=== PATIENT | male | born 1975 | race Two or more races ===

== ENCOUNTER 2020-09-02 22:00 | Inpatient (IN) ==
[2020-09-03 01:48] LABS: ABS Eosinophils 0.1 10^3/ul (0-0.6); ABS Lymphocytes 1.7 10^3/ul (1.0-4.8); ABS Monocytes 0.6 10^3/ul (0-0.8); Eosinophil % 1.4 %; Hematocrit 21 % (42-52); Hemoglobin 7.1 g/dL (14.0-18.0); Lymphocyte % 22.7 %; Mean Corpuscular HGB Conc 34 g/dL (31-36); Mean Corpuscular Hemoglobin 28 pg (27-31); Mean Corpuscular Volume 82 fL (80-94); Mean Platelet Volume 8.9 fL (7.4-10.4); Platelet Count 273 10^3/uL (150-450); Red Blood Count 2.55 10^6 /uL (4.18-5.48); Red Cell Distribution Width 16 % (10-15); White Blood Count 7.4 10^3/uL (3.5-10.8)
[2020-09-03 02:05] LABS: ALT 6 U/L (7-52); AST 9 U/L (13-39); Albumin 3.7 g/dL (3.2-5.2); Albumin/Globulin Ratio 1.5 (1-3); Alkaline Phosphatase 91 U/L (34-104); Anion Gap 8 mmol/L (2-11); Blood Urea Nitrogen 43 mg/dL (6-24); CO2 Carbon Dioxide 23 mmol/L (22-32); Calcium 8.8 mg/dL (8.6-10.3); Chloride 107 mmol/L (101-111); EGFR African American 18.5 (>60); EGFR Non-African American 15.3 (>60); Globulin 2.5 g/dL (2-4); Glucose 89 mg/dL (70-100); Potassium 3.9 mmol/L (3.5-5.0); Sodium 138 mmol/L (135-145); Total Protein 6.2 g/dL (6.4-8.9)
[2020-09-03 02:20] LABS: Troponin I 0.07 ng/mL (<0.03)
[2020-09-03] MEDS ORDERED: Lisinopril/HCTZ 20/25 TAB (NF) PO STA (02:44)
[2020-09-03] MEDS ORDERED: Nitro 2% OINT (Nitroglycerin) 1 INCH/PAK TOPICAL ONE (02:52)
[2020-09-03] MEDS ORDERED: Lactated Ringers 1000 ml BAG 1,000 ML IV SCH (03:00)
[2020-09-03 03:22] LABS: ABS Eosinophils 0.1 10^3/ul (0-0.6); ABS Lymphocytes 1.3 10^3/ul (1.0-4.8); ABS Monocytes 0.5 10^3/ul (0-0.8); ABS Neutrophils 5.5 10^3/ul (1.5-7.7); Eosinophil % 1.1 %; Hematocrit 19 % (42-52); Hemoglobin 6.6 g/dL (14.0-18.0); Lymphocyte % 17.2 %; Mean Corpuscular HGB Conc 34 g/dL (31-36); Mean Corpuscular Hemoglobin 28 pg (27-31); Mean Corpuscular Volume 82 fL (80-94); Mean Platelet Volume 8.6 fL (7.4-10.4); Platelet Count 271 10^3/uL (150-450); Red Blood Count 2.38 10^6 /uL (4.18-5.48); Red Cell Distribution Width 16 % (10-15); White Blood Count 7.4 10^3/uL (3.5-10.8)
[2020-09-03 03:38] LABS: Activated Partial Thrombo Time 36.1 seconds (26.0-38.0); INR 1.01 (0.82-1.09)
[2020-09-03 03:45] LABS: Influenza A Molecular Negative (Negative); Influenza B Molecular Negative (Negative)
[2020-09-03] MEDS ORDERED: Lidocaine PATCH 5% PATCH TRANSDERM ONE (05:12)
[2020-09-03 05:49] LABS: Troponin I 0.07 ng/mL (<0.03)
[2020-09-03] MEDS: niCARdipine 0.1MG/ML IVPREMIX 20 MG/200 ML BAG IV SCH ×3 (06:14→10:02)
[2020-09-03 06:49] LABS: Urine Appearance Cloudy; Urine Bilirubin Negative (Negative); Urine Blood Negative (Negative); Urine Color Yellow; Urine Glucose Negative (Negative); Urine Ketones Negative (Negative); Urine Nitrite Negative (Negative); Urine Protein 2+(100 mg/dL) (Negative); Urine Specific Gravity 1.006 (1.010-1.030); Urine Urobilinogen Negative (Negative)
[2020-09-03 07:11] LABS: Urine Benzodiazepine Screen None Detected (None Detect); Urine Cannabinoids Screen None Detected (None Detect); Urine Opiates Screen None Detected (None Detect)
[2020-09-03 07:12] LABS: Urine Bacteria Absent (Absent); Urine Red Blood Cell Absent (Absent); Urine Squamous Epithelial Cell Present (Absent); Urine White Blood Cell Trace(0-5/hpf) (Absent)
[2020-09-03 07:39] LABS: Corrected Retic Count 1.2 % (0.5-1.5); Hematocrit for Retic CNT 20 % (42-52); Immature Retic Fraction 0.59; RBC Retic Count 2.41 10^6/uL (4.18-5.48)
[2020-09-03 07:48] LABS: LDH 153 U/L (140-271)
[2020-09-03 08:09] LABS: Polychromasia 1+
[2020-09-03 08:44] LABS: Magnesium 2.1 mg/dL (1.9-2.7); Phosphorus 4.6 mg/dL (2.5-5.0)
[2020-09-03 09:05] LABS: % Iron Saturation 7 % (15-55); Iron 30 ug/dL (50-212); Total Iron Binding Capacity 402 mcg/dL (250-450); Transferrin 287 mg/dL (203-362); Unsaturated Iron Binding < 387 ug/dL
[2020-09-03 09:19] LABS: Ferritin 24.5 ng/mL (24-336)
[2020-09-03 11:12] LABS: Cholesterol 173 mg/dL; HDL Cholesterol 42.3 mg/dL
[2020-09-03 11:49] LABS: Troponin I 0.07 ng/mL (<0.03)
[2020-09-03 14:01] LABS: LDL Cholesterol 112 mg/dL; Triglycerides 95 mg/dL
[2020-09-03] MEDS ORDERED: Lidocaine Patch REMOVE PATCH PATCH OFF ONE (17:00)
[2020-09-03 17:32] LABS: Hematocrit 20 % (42-52); Hemoglobin 6.7 g/dL (14.0-18.0)
[2020-09-04 05:34] LABS: ABS Eosinophils 0.1 10^3/ul (0-0.6); ABS Lymphocytes 1.1 10^3/ul (1.0-4.8); ABS Monocytes 0.4 10^3/ul (0-0.8); ABS Neutrophils 4.7 10^3/ul (1.5-7.7); Eosinophil % 1.4 %; Hematocrit 21 % (42-52); Hemoglobin 7.1 g/dL (14.0-18.0); Lymphocyte % 17.1 %; Mean Corpuscular HGB Conc 34 g/dL (31-36); Mean Corpuscular Hemoglobin 27 pg (27-31); Mean Corpuscular Volume 81 fL (80-94); Mean Platelet Volume 8.8 fL (7.4-10.4); Nucleated Red Blood Cells % 0.1; Platelet Count 246 10^3/uL (150-450); Red Blood Count 2.59 10^6 /uL (4.18-5.48); Red Cell Distribution Width 17 % (10-15); White Blood Count 6.4 10^3/uL (3.5-10.8)
[2020-09-04 05:50] LABS: Albumin 3.6 g/dL (3.2-5.2); Albumin/Globulin Ratio 1.4 (1-3); BUN/Creatinine Ratio 10.2 (8-20); EGFR African American 18.9 (>60); EGFR Non-African American 15.6 (>60); Globulin 2.6 g/dL (2-4); Magnesium 2.1 mg/dL (1.9-2.7); Phosphorus 4.4 mg/dL (2.5-5.0); Potassium 4.1 mmol/L (3.5-5.0); Total Bilirubin 0.3 mg/dL (0.2-1.0); Total Protein 6.2 g/dL (6.4-8.9)
[2020-09-04] MEDS ORDERED: Iron Sucrose 200 MG in NS 0.9% 100 ml BAG 100 ML IVPB ONE (14:30)
[2020-09-04 17:20] VITALS: BP 137/89
== END 2020-09-04 17:25 | disposition home or self-care (01) | DRG 199 ==
LOC: ED 22:00 → ICU 09-03 07:12 → MEDTELE 09-03 20:02
PROVIDERS: ADMIT Internal Medicine; ATTEND Internal Medicine

== ENCOUNTER 2022-02-15 13:31 | Inpatient (IN) ==
[2022-02-15] MEDS: Labetalol IV 5 MG/ML 20 ml VIAL IV PUSH PRN ×2 (16:55→17:50)
[2022-02-15 16:57] LABS: ABS Eosinophils 0.2 10^3/ul (0-0.6); ABS Monocytes 0.5 10^3/ul (0-0.8); ABS Neutrophils 5.8 10^3/ul (1.5-7.7); Hematocrit 22 % (42-52); Hemoglobin 7.7 g/dL (14.0-18.0); Lymphocyte % 13.6 %; Mean Corpuscular HGB Conc 35 g/dL (31-36); Mean Corpuscular Hemoglobin 29 pg (27-31); Mean Corpuscular Volume 84 fL (80-94); Mean Platelet Volume 7.4 fL (7.4-10.4); Platelet Count 213 10^3/uL (150-450); Red Blood Count 2.63 10^6 /uL (4.18-5.48); Red Cell Distribution Width 17 % (10-15); White Blood Count 7.6 10^3/uL (3.5-10.8)
[2022-02-15 17:29] LABS: Albumin 3.6 g/dL (3.2-5.2); Albumin/Globulin Ratio 1.8 (1-3); Calcium 8.7 mg/dL (8.6-10.3); Total Bilirubin 0.3 mg/dL (0.2-1.0); Total Protein 5.6 g/dL (6.4-8.9); eGFR CKD-EPI 4.9 (>60)
[2022-02-15 17:32] LABS: Potassium 5.2 mmol/L (3.5-5.0)
[2022-02-15] MEDS ORDERED: Nitro 2% OINT (Nitroglycerin) 1 INCH/PAK TOPICAL ONE (18:25)
[2022-02-16] MEDS ORDERED: Albuterol HFA INHALER 8 gm MDI INH PRN (02:21)
[2022-02-16] MEDS ORDERED: Nitro 2% OINT (Nitroglycerin) 1 INCH/PAK TOPICAL ONE (02:48)
[2022-02-16] MEDS: hydrALAZINE 20 mg/ml 1 ML Vial IV IV SLOW PU PRN (03:31)
[2022-02-16 05:13] LABS: ABS Basophils 0.1 10^3/ul (0-0.2); ABS Eosinophils 0.3 10^3/ul (0-0.6); ABS Monocytes 0.5 10^3/ul (0-0.8); Eosinophil % 2.7 %; Hematocrit 25 % (42-52); Hemoglobin 8.3 g/dL (14.0-18.0); Mean Corpuscular HGB Conc 34 g/dL (31-36); Mean Corpuscular Hemoglobin 29 pg (27-31); Mean Corpuscular Volume 85 fL (80-94); Mean Platelet Volume 7.6 fL (7.4-10.4); Platelet Count 234 10^3/uL (150-450); Red Cell Distribution Width 17 % (10-15); White Blood Count 9.9 10^3/uL (3.5-10.8)
[2022-02-16 05:58] LABS: Calcium 9.3 mg/dL (8.6-10.3); eGFR CKD-EPI 4.3 (>60)
[2022-02-16 05:59] LABS: Potassium 5.7 mmol/L (3.5-5.0)
[2022-02-16] MEDS ORDERED: Labetalol IV 5 MG/ML 20 ml VIAL IV PUSH PRN (08:58)
[2022-02-16] MEDS ORDERED: Labetalol IV 5 MG/ML 20 ml VIAL ONE (09:10)
[2022-02-16 13:38] LABS: Hepatitis B Surface Antigen Nonreactive (Nonreactive)
[2022-02-16 13:55] LABS: Hepatitis B Surface Ab Not Immune (Immune)
[2022-02-17 05:48] LABS: ABS Eosinophils 0.2 10^3/ul (0-0.6); ABS Lymphocytes 0.9 10^3/ul (1.0-4.8); ABS Monocytes 0.5 10^3/ul (0-0.8); ABS Neutrophils 6.3 10^3/ul (1.5-7.7); Hematocrit 26 % (42-52); Hemoglobin 8.7 g/dL (14.0-18.0); Lymphocyte % 11.5 %; Mean Corpuscular HGB Conc 33 g/dL (31-36); Mean Corpuscular Hemoglobin 28 pg (27-31); Mean Corpuscular Volume 84 fL (80-94); Mean Platelet Volume 7.6 fL (7.4-10.4); Platelet Count 245 10^3/uL (150-450); Red Blood Count 3.11 10^6 /uL (4.18-5.48); Red Cell Distribution Width 17 % (10-15); White Blood Count 8.1 10^3/uL (3.5-10.8)
[2022-02-17 06:21] LABS: Calcium 9.5 mg/dL (8.6-10.3); eGFR CKD-EPI 6.3 (>60)
[2022-02-17 06:30] LABS: Potassium 5.7 mmol/L (3.5-5.0)
[2022-02-17] MEDS: hydrALAZINE 20 mg/ml 1 ML Vial IV IV SLOW PU PRN (08:31)
[2022-02-17] MEDS: Pentafluoroprop/Tetrafluoro 1 SPRAY TOP.SPRAY TOPICAL SCH (09:27)
[2022-02-17] MEDS ORDERED: Ondansetron 4 mg VIAL 2 MG/ML 2 ml VIAL IV PRN (10:43)
[2022-02-18 05:41] LABS: ABS Basophils 0.1 10^3/ul (0-0.2); ABS Eosinophils 0.2 10^3/ul (0-0.6); ABS Monocytes 0.7 10^3/ul (0-0.8); ABS Neutrophils 5.2 10^3/ul (1.5-7.7); Eosinophil % 3.3 %; Hematocrit 25 % (42-52); Hemoglobin 8.3 g/dL (14.0-18.0); Lymphocyte % 13.7 %; Mean Corpuscular HGB Conc 34 g/dL (31-36); Mean Corpuscular Hemoglobin 29 pg (27-31); Mean Corpuscular Volume 85 fL (80-94); Mean Platelet Volume 7.8 fL (7.4-10.4); Platelet Count 221 10^3/uL (150-450); Red Cell Distribution Width 17 % (10-15); White Blood Count 7.3 10^3/uL (3.5-10.8)
[2022-02-18 05:59] LABS: Albumin 3.7 g/dL (3.2-5.2); Albumin/Globulin Ratio 1.8 (1-3); Calcium 9.2 mg/dL (8.6-10.3); Globulin 2.1 g/dL (2-4); Total Bilirubin 0.4 mg/dL (0.2-1.0); Total Protein 5.8 g/dL (6.4-8.9); eGFR CKD-EPI 6.6 (>60)
[2022-02-18 06:04] LABS: Potassium 6.3 mmol/L (3.5-5.0)
[2022-02-18] MEDS ORDERED: Dextrose 50% Syringe 50 ml 25 GM/50 ML SYRINGE IV PUSH ONE (06:11)
[2022-02-18] MEDS ORDERED: Dextrose 50% Syringe 50 ml 25 GM/50 ML SYRINGE IV PUSH PRN (08:38)
[2022-02-18 10:26] LABS: Calcium 9.3 mg/dL (8.6-10.3)
[2022-02-18 10:27] LABS: Potassium 5.3 mmol/L (3.5-5.0)
[2022-02-18 10:31] LABS: eGFR CKD-EPI 6.2 (>60)
[2022-02-18] MEDS: Heparin 1,000 UNIT/ML 10 ml (10,000 UNITS) CATHLAB/DIALYSIS DIALYSIS PRN ×3 (11:45→13:43)
[2022-02-18] MEDS: Pentafluoroprop/Tetrafluoro 1 SPRAY TOP.SPRAY TOPICAL SCH (12:02)
[2022-02-18] MEDS: Iodixanol (CONTRAST) 320 MG/ML 100 ML SDV IV ONE ×2 (12:09→17:32)
[2022-02-19 05:21] LABS: ABS Basophils 0.1 10^3/ul (0-0.2); ABS Eosinophils 0.3 10^3/ul (0-0.6); ABS Lymphocytes 0.9 10^3/ul (1.0-4.8); ABS Monocytes 0.7 10^3/ul (0-0.8); ABS Neutrophils 5.5 10^3/ul (1.5-7.7); Eosinophil % 3.9 %; Hematocrit 25 % (42-52); Hemoglobin 8.3 g/dL (14.0-18.0); Lymphocyte % 12.3 %; Mean Corpuscular HGB Conc 33 g/dL (31-36); Mean Corpuscular Hemoglobin 28 pg (27-31); Mean Corpuscular Volume 84 fL (80-94); Mean Platelet Volume 7.4 fL (7.4-10.4); Platelet Count 213 10^3/uL (150-450); Red Blood Count 2.97 10^6 /uL (4.18-5.48); Red Cell Distribution Width 18 % (10-15); White Blood Count 7.4 10^3/uL (3.5-10.8)
[2022-02-19 05:51] LABS: eGFR CKD-EPI 7.9 (>60)
[2022-02-19 06:03] LABS: Potassium 5.3 mmol/L (3.5-5.0)
[2022-02-19 16:45] VITALS: BP 137/81
== END 2022-02-19 18:10 | disposition home or self-care (01) | DRG 304 ==
LOC: EDHOLD 13:31 → ED 13:31 → SUATTDRO 20:27 → SSU 23:35 → MEDTELE 02-16 03:59 → SUATTDRO 02-17 18:41
PROVIDERS: ADMIT Internal Medicine; ATTEND Hospitalist

== ENCOUNTER 2022-08-25 20:22 | Inpatient (IN) ==
[2022-08-25 21:20] LABS: Hematocrit 27 % (42-52); Hemoglobin 8.7 g/dL (14.0-18.0); Mean Corpuscular HGB Conc 33 g/dL (31-36); Mean Corpuscular Hemoglobin 28 pg (27-31); Mean Corpuscular Volume 87 fL (80-94); Mean Platelet Volume 8.8 fL (7.4-10.4); Platelet Count 108 10^3/uL (150-450); Red Blood Count 3.07 10^6 /uL (4.18-5.48); Red Cell Distribution Width 19 % (10-15); White Blood Count 25.7 10^3/uL (3.5-10.8)
[2022-08-25 21:25] LABS: INR 1.43 (0.88-1.18)
[2022-08-25 21:45] LABS: Albumin 3.4 g/dL (3.2-5.2); Albumin/Globulin Ratio 1.7 (1-3); C Reactive Protein 193.28 mg/L (<8.01); Calcium 8.2 mg/dL (8.6-10.3); Creatinine, Serum 15.11 mg/dL (0.67-1.17); Total Bilirubin 1.1 mg/dL (0.2-1.0); Total Protein 5.4 g/dL (6.4-8.9); eGFR CKD-EPI 3.7 (>60)
[2022-08-25 21:51] LABS: Potassium 7.6 mmol/L (3.5-5.0)
[2022-08-25] MEDS ORDERED: Dextrose 50% Syringe 50 ml 25 GM/50 ML SYRINGE ONE (21:54)
[2022-08-25 22:03] LABS: Platelet Morphology Large; Toxic Granulation 1+
[2022-08-25 22:04] LABS: ABS Basophils 0.1 10^3/ul (0-0.2); ABS Lymphocytes 0.1 10^3/ul (1.0-4.8); ABS Monocytes 0.8 10^3/ul (0-0.8); ABS Neutrophils 24.7 10^3/ul (1.5-7.7); Lymphocyte % 0.4 %; Nucleated Red Blood Cells % 0.1
[2022-08-25] MEDS ORDERED: Vancomycin 1,000 MG in NS 0.9% 250 ml 250 ML IVPB ONE (22:06)
[2022-08-25] MEDS ORDERED: Ondansetron 4 mg VIAL 2 MG/ML 2 ml VIAL ONE (22:06)
[2022-08-25] MEDS ORDERED: Cefepime 2 GM in Dextrose 2 GM/50 ML BAG IV ONE (22:06)
[2022-08-25] MEDS ORDERED: metroNIDAZOLE IV 500 MG/100ML 500 MG/100 ML BAG IVPB ONE (22:07)
[2022-08-25] MEDS ORDERED: Ondansetron 4 mg VIAL 2 MG/ML 2 ml VIAL IV ONE ×2 (22:07)
[2022-08-25] MEDS ORDERED: CALCIUM GLUCONATE 1GM/50ML NS 1 GM/50 ML BAG IV ONE (22:11)
[2022-08-25] MEDS ORDERED: Insulin NPH 100 units/ml SUBCUT ONE (22:16)
[2022-08-25 22:41] LABS: Albumin 3.4 g/dL (3.2-5.2); Albumin/Globulin Ratio 1.7 (1-3); Calcium 8.1 mg/dL (8.6-10.3); Creatinine, Serum 15.11 mg/dL (0.67-1.17); Total Bilirubin 1.1 mg/dL (0.2-1.0); Total Protein 5.4 g/dL (6.4-8.9); eGFR CKD-EPI 3.7 (>60)
[2022-08-25 22:50] LABS: Potassium 7.7 mmol/L (3.5-5.0)
[2022-08-25] MEDS ORDERED: Dextrose 50% Syringe 50 ml 25 GM/50 ML SYRINGE IV PUSH ONE (22:58)
[2022-08-25] MEDS ORDERED: D5LR 1000 ml BAG 1,000 ML IV SCH (23:00)
[2022-08-25] MEDS ORDERED: D10W 1000 ml BAG 1,000 ML IV SCH (23:00)
[2022-08-25] MEDS ORDERED: Morphine 2 MG/ML SYRINGE IV ONE (23:05)
[2022-08-25] MEDS ORDERED: Sodium Polystyrene ORAL.SUSP 15 GM/60 ML BTL PO ONE ×2 (23:22→23:28)
[2022-08-26 00:11] LABS: Phosphorus 8.2 mg/dL (2.5-5.0)
[2022-08-26 00:42] LABS: Calcium 8.1 mg/dL (8.6-10.3); Creatinine, Serum 15.13 mg/dL (0.67-1.17); eGFR CKD-EPI 3.7 (>60)
[2022-08-26 00:45] LABS: Potassium 6.7 mmol/L (3.5-5.0)
[2022-08-26] MEDS: Dextrose 50% Syringe 50 ml 25 GM/50 ML SYRINGE IV PUSH SCH (01:06)
[2022-08-26] MEDS ORDERED: HYDROmorphone 0.5 MG/0.5 ML SYRINGE ONE (01:18)
[2022-08-26] MEDS: HYDROmorphone 0.5 MG/0.5 ML SYRINGE IV SLOW PU PRN ×2 (01:20→20:06)
[2022-08-26] MEDS ORDERED: Vancomycin per Pharmacy 1 EA NOTE FOLLOW UP SCH (02:00)
[2022-08-26] MEDS ORDERED: Zosyn per Pharmacy NOTE FOLLOW UP SCH (02:00)
[2022-08-26] MEDS ORDERED: Pentafluoroprop/Tetrafluoro 1 SPRAY TOP.SPRAY TOPICAL SCH (02:00)
[2022-08-26] MEDS ORDERED: ZOSYN 3.375 GM x ONE DOSE over 30 miuntes IV (02:30)
[2022-08-26] MEDS ORDERED: D10W 1000 ml BAG 1,000 ML IV SCH (02:33)
[2022-08-26] MEDS: Heparin 1,000 UNIT/ML 10 ml (10,000 UNITS) CATHLAB/DIALYSIS DIALYSIS SCH ×5 (02:52→17:17)
[2022-08-26] MEDS: Pentafluoroprop/Tetrafluoro 1 SPRAY TOP.SPRAY TOPICAL PRN ×2 (02:52→15:09)
[2022-08-26] MEDS: Ondansetron 4 mg VIAL 2 MG/ML 2 ml VIAL IV PRN (03:15)
[2022-08-26 04:14] LABS: Hepatitis B Surface Antigen Nonreactive (Nonreactive)
[2022-08-26 04:19] LABS: Hepatitis A Ab IgM Negative (Negative)
[2022-08-26 04:20] LABS: Hepatitis B Core IgM Nonreactive (Nonreactive)
[2022-08-26 04:32] LABS: Hepatitis C Antibody Negative (Negative)
[2022-08-26] MEDS: D10W 1000 ml BAG 1,000 ML IV SCH ×3 (05:16→22:50)
[2022-08-26 05:47] LABS: Hematocrit 26 % (42-52); Hemoglobin 8.7 g/dL (14.0-18.0); Mean Corpuscular HGB Conc 33 g/dL (31-36); Mean Corpuscular Hemoglobin 28 pg (27-31); Mean Corpuscular Volume 86 fL (80-94); Mean Platelet Volume 8.8 fL (7.4-10.4); Platelet Count 114 10^3/uL (150-450); Red Blood Count 3.06 10^6 /uL (4.18-5.48); Red Cell Distribution Width 20 % (10-15); White Blood Count 20.7 10^3/uL (3.5-10.8)
[2022-08-26 05:49] LABS: ABS Basophils 0.2 10^3/ul (0-0.2); ABS Lymphocytes 0.1 10^3/ul (1.0-4.8); ABS Monocytes 0.8 10^3/ul (0-0.8); ABS Neutrophils 19.5 10^3/ul (1.5-7.7); Eosinophil % 0.1 %; Lymphocyte % 0.7 %
[2022-08-26] MEDS ORDERED: Vancomycin Random Level NOTE FOLLOW UP ONE (06:00)
[2022-08-26 06:05] LABS: Albumin 3.5 g/dL (3.2-5.2); Albumin/Globulin Ratio 1.7 (1-3); Calcium 8.4 mg/dL (8.6-10.3); Creatinine, Serum 8.76 mg/dL (0.67-1.17); Globulin 2.1 g/dL (2-4); Phosphorus 5.5 mg/dL (2.5-5.0); Potassium 3.9 mmol/L (3.5-5.0); Total Bilirubin 0.9 mg/dL (0.2-1.0); Total Protein 5.6 g/dL (6.4-8.9); Vancomycin Random 10.9 mcg/mL
[2022-08-26 06:12] LABS: High Sensitivity Troponin 1 Hr 113 pg/mL (<20)
[2022-08-26] MEDS ORDERED: Metoprolol Tartrate 5 mg VIAL 5 ml VIAL (1 mg/ml) IV PRN (06:47)
[2022-08-26] MEDS: ZOSYN 3.375 GM Q12H per EXTENDED INFUSION IV SCH ×2 (08:28→19:57)
[2022-08-26] MEDS ORDERED: Vancomycin - DIALYSIS DOSING 1 EA NOTE FOLLOW UP SCH (09:00)
[2022-08-26] MEDS ORDERED: Labetalol IV 5 MG/ML 20 ml VIAL IV PUSH ONE ×3 (10:31→23:38)
[2022-08-26] MEDS ORDERED: Iodixanol (CONTRAST) 320 MG/ML 100 ML SDV IV ONE (10:43)
[2022-08-26] MEDS ORDERED: Dextrose 50% Syringe 50 ml 25 GM/50 ML SYRINGE ONE (11:01)
[2022-08-26 12:05] LABS: Albumin 3.5 g/dL (3.2-5.2); Albumin/Globulin Ratio 1.6 (1-3); Calcium 8.5 mg/dL (8.6-10.3); Creatinine, Serum 8.74 mg/dL (0.67-1.17); Globulin 2.2 g/dL (2-4); Magnesium 1.9 mg/dL (1.9-2.7); Phosphorus 6.4 mg/dL (2.5-5.0); Potassium 4.3 mmol/L (3.5-5.0); Total Bilirubin 0.9 mg/dL (0.2-1.0); Total Protein 5.7 g/dL (6.4-8.9); eGFR CKD-EPI 7.1 (>60)
[2022-08-26 12:12] LABS: Hepatitis B Surface Antigen Nonreactive (Nonreactive)
[2022-08-26 12:29] LABS: Hepatitis B Surface Ab Not Immune (Immune)
[2022-08-26] MEDS: Dextrose 50% Syringe 50 ml 25 GM/50 ML SYRINGE IV PUSH PRN (13:00)
[2022-08-26] MEDS: Labetalol IV 5 MG/ML 20 ml VIAL IV PUSH PRN ×2 (15:49→23:17)
[2022-08-26] MEDS ORDERED: Vancomycin 750 MG in NS 0.9% 250 ML IVPB ONE (18:00)
[2022-08-26] MEDS: cloNIDine 0.3 MG PATCH 0.3 MG/24 HR 7 DAY PATCH TRANSDERM SCH (20:12)
[2022-08-27] MEDS: HYDROmorphone 0.5 MG/0.5 ML SYRINGE IV SLOW PU PRN ×3 (01:52→21:26)
[2022-08-27 04:21] LABS: ABS Basophils 0.1 10^3/ul (0-0.2); ABS Eosinophils 0.1 10^3/ul (0-0.6); ABS Lymphocytes 0.2 10^3/ul (1.0-4.8); ABS Monocytes 0.7 10^3/ul (0-0.8); ABS Neutrophils 12.9 10^3/ul (1.5-7.7); Hematocrit 26 % (42-52); Hemoglobin 8.5 g/dL (14.0-18.0); Lymphocyte % 1.6 %; Mean Corpuscular HGB Conc 33 g/dL (31-36); Mean Corpuscular Hemoglobin 28 pg (27-31); Mean Corpuscular Volume 85 fL (80-94); Mean Platelet Volume 8.3 fL (7.4-10.4); Platelet Count 129 10^3/uL (150-450); Red Blood Count 3.07 10^6 /uL (4.18-5.48); Red Cell Distribution Width 19 % (10-15)
[2022-08-27 05:22] LABS: Albumin 3.1 g/dL (3.2-5.2); Albumin/Globulin Ratio 1.6 (1-3); Calcium 8.4 mg/dL (8.6-10.3); Creatinine, Serum 6.71 mg/dL (0.67-1.17); Magnesium 1.7 mg/dL (1.9-2.7); Phosphorus 7.1 mg/dL (2.5-5.0); Potassium 4.9 mmol/L (3.5-5.0); Total Bilirubin 0.7 mg/dL (0.2-1.0); Total Protein 5.1 g/dL (6.4-8.9); Vancomycin Random 16.1 mcg/mL; eGFR CKD-EPI 9.7 (>60)
[2022-08-27] MEDS: Labetalol IV 5 MG/ML 20 ml VIAL IV PUSH PRN ×2 (05:47→12:59)
[2022-08-27] MEDS ORDERED: Vancomycin Random Level NOTE FOLLOW UP ONE (06:00)
[2022-08-27] MEDS: Pentafluoroprop/Tetrafluoro 1 SPRAY TOP.SPRAY TOPICAL PRN (08:08)
[2022-08-27] MEDS: Heparin 1,000 UNIT/ML 10 ml (10,000 UNITS) CATHLAB/DIALYSIS DIALYSIS SCH ×4 (08:08→10:53)
[2022-08-27] MEDS: ZOSYN 3.375 GM Q12H per EXTENDED INFUSION IV SCH (08:44)
[2022-08-27] MEDS: D10W 1000 ml BAG 1,000 ML IV SCH (10:08)
[2022-08-27] MEDS: cefTRIAXone 1 gm/50 mL D5W 1 GM/50 ML BAG IV SCH (12:59)
[2022-08-27] MEDS: Azithromycin 500 mg/250 ml NS 500 MG/250 ML BAG IVPB SCH (13:55)
[2022-08-27] MEDS: Ondansetron 4 mg VIAL 2 MG/ML 2 ml VIAL IV PRN (13:58)
[2022-08-28 06:04] LABS: ABS Eosinophils 0.4 10^3/ul (0-0.6); ABS Lymphocytes 0.4 10^3/ul (1.0-4.8); ABS Monocytes 0.8 10^3/ul (0-0.8); ABS Neutrophils 9.7 10^3/ul (1.5-7.7); Eosinophil % 3.2 %; Hematocrit 27 % (42-52); Hemoglobin 8.5 g/dL (14.0-18.0); Mean Corpuscular HGB Conc 32 g/dL (31-36); Mean Corpuscular Hemoglobin 27 pg (27-31); Mean Corpuscular Volume 85 fL (80-94); Mean Platelet Volume 9.2 fL (7.4-10.4); Platelet Count 158 10^3/uL (150-450); Red Blood Count 3.14 10^6 /uL (4.18-5.48); Red Cell Distribution Width 19 % (10-15); White Blood Count 11.3 10^3/uL (3.5-10.8)
[2022-08-28 06:23] LABS: Albumin 3.3 g/dL (3.2-5.2); Albumin/Globulin Ratio 1.5 (1-3); Calcium 8.9 mg/dL (8.6-10.3); Creatinine, Serum 6.5 mg/dL (0.67-1.17); Globulin 2.2 g/dL (2-4); Total Bilirubin 0.5 mg/dL (0.2-1.0); Total Protein 5.5 g/dL (6.4-8.9); eGFR CKD-EPI 10.1 (>60)
[2022-08-28] MEDS: Dextrose 50% Syringe 50 ml 25 GM/50 ML SYRINGE IV PUSH PRN (09:10)
[2022-08-28] MEDS ORDERED: Regadenoson 0.4 MG/5 ML SYRINGE ONE (09:37)
[2022-08-28] MEDS: Heparin 1,000 UNIT/ML 10 ml (10,000 UNITS) CATHLAB/DIALYSIS DIALYSIS SCH (12:33)
[2022-08-28] MEDS: cefTRIAXone 1 gm/50 mL D5W 1 GM/50 ML BAG IV SCH (13:27)
[2022-08-28] MEDS: Azithromycin 500 mg/250 ml NS 500 MG/250 ML BAG IVPB SCH (14:10)
[2022-08-28 14:19] LABS: TSH Ultra Thyroid Stim Horm 1.39 mcIU/mL (0.34-5.60)
[2022-08-28 14:21] LABS: Free T3 2.5 pg/mL (2.5-3.9); Free T4 0.93 ng/dL (0.61-1.12)
[2022-08-28] MEDS: Ondansetron 4 mg VIAL 2 MG/ML 2 ml VIAL IV PRN (20:34)
[2022-08-28] MEDS: HYDROmorphone 0.5 MG/0.5 ML SYRINGE IV SLOW PU PRN (20:34)
[2022-08-28] MEDS ORDERED: HYDROmorphone 1 MG/1 ML SYRINGE IV SLOW PU ONE (21:37)
[2022-08-28] MEDS ORDERED: Naloxone 0.4 mg VIAL 0.4 mg/ml 1 ml VIAL IV PUSH PRN (21:37)
[2022-08-29 07:41] LABS: ABS Eosinophils 0.5 10^3/ul (0-0.6); ABS Lymphocytes 0.5 10^3/ul (1.0-4.8); ABS Monocytes 0.5 10^3/ul (0-0.8); ABS Neutrophils 6.9 10^3/ul (1.5-7.7); Eosinophil % 5.4 %; Hematocrit 27 % (42-52); Hemoglobin 9.1 g/dL (14.0-18.0); Lymphocyte % 6.1 %; Mean Corpuscular HGB Conc 33 g/dL (31-36); Mean Corpuscular Hemoglobin 28 pg (27-31); Mean Corpuscular Volume 85 fL (80-94); Mean Platelet Volume 8.9 fL (7.4-10.4); Nucleated Red Blood Cells % 0.1; Platelet Count 172 10^3/uL (150-450); Red Blood Count 3.19 10^6 /uL (4.18-5.48); Red Cell Distribution Width 19 % (10-15); White Blood Count 8.4 10^3/uL (3.5-10.8)
[2022-08-29] MEDS: cefTRIAXone 1 gm/50 mL D5W 1 GM/50 ML BAG IV SCH (08:02)
[2022-08-29] MEDS: HYDROmorphone 0.5 MG/0.5 ML SYRINGE IV SLOW PU PRN ×3 (08:02→21:05)
[2022-08-29 08:11] LABS: Blood Urea Nitrogen 51 mg/dL (6-24); CO2 Carbon Dioxide 30 mmol/L (22-32); Calcium 8.9 mg/dL (8.6-10.3); Chloride 96 mmol/L (101-111); Creatinine, Serum 8.44 mg/dL (0.67-1.17); Glucose 112 mg/dL (70-100); Sodium 135 mmol/L (135-145); eGFR CKD-EPI 7.4 (>60)
[2022-08-29 08:13] LABS: Anion Gap 9 mmol/L (2-11)
[2022-08-29] MEDS: Pentafluoroprop/Tetrafluoro 1 SPRAY TOP.SPRAY TOPICAL PRN (09:04)
[2022-08-29] MEDS: Heparin 1,000 UNIT/ML 10 ml (10,000 UNITS) CATHLAB/DIALYSIS DIALYSIS SCH ×5 (09:04→12:50)
[2022-08-29] MEDS: Azithromycin 500 mg/250 ml NS 500 MG/250 ML BAG IVPB SCH (14:25)
[2022-08-29] MEDS: Labetalol IV 5 MG/ML 20 ml VIAL IV PUSH PRN (18:06)
[2022-08-30] MEDS: HYDROmorphone 0.5 MG/0.5 ML SYRINGE IV SLOW PU PRN ×5 (03:00→21:59)
[2022-08-30] MEDS: Labetalol IV 5 MG/ML 20 ml VIAL IV PUSH PRN ×2 (05:47→18:02)
[2022-08-30 07:22] LABS: Hematocrit 27 % (42-52); Hemoglobin 9.1 g/dL (14.0-18.0); Mean Corpuscular HGB Conc 33 g/dL (31-36); Mean Corpuscular Hemoglobin 28 pg (27-31); Mean Corpuscular Volume 84 fL (80-94); Mean Platelet Volume 8.9 fL (7.4-10.4); Platelet Count 197 10^3/uL (150-450); Red Blood Count 3.26 10^6 /uL (4.18-5.48); Red Cell Distribution Width 20 % (10-15); White Blood Count 9.2 10^3/uL (3.5-10.8)
[2022-08-30 07:38] LABS: Calcium 8.8 mg/dL (8.6-10.3); Creatinine, Serum 7.43 mg/dL (0.67-1.17); Magnesium 1.7 mg/dL (1.9-2.7); Phosphorus 6.2 mg/dL (2.5-5.0); Potassium 4.6 mmol/L (3.5-5.0); eGFR CKD-EPI 8.6 (>60)
[2022-08-30] MEDS: cefTRIAXone 1 gm/50 mL D5W 1 GM/50 ML BAG IV SCH (07:41)
[2022-08-30] MEDS: Azithromycin 500 mg/250 ml NS 500 MG/250 ML BAG IVPB SCH (09:17)
[2022-08-30] MEDS: Heparin 1,000 UNIT/ML 10 ml (10,000 UNITS) CATHLAB/DIALYSIS DIALYSIS SCH (09:17)
[2022-08-31] MEDS: HYDROmorphone 0.5 MG/0.5 ML SYRINGE IV SLOW PU PRN ×6 (00:59→21:14)
[2022-08-31 06:31] LABS: Hematocrit 28 % (42-52); Hemoglobin 9.4 g/dL (14.0-18.0); Mean Corpuscular HGB Conc 33 g/dL (31-36); Mean Corpuscular Hemoglobin 28 pg (27-31); Mean Corpuscular Volume 84 fL (80-94); Mean Platelet Volume 8.9 fL (7.4-10.4); Platelet Count 239 10^3/uL (150-450); Red Blood Count 3.37 10^6 /uL (4.18-5.48); Red Cell Distribution Width 19 % (10-15); White Blood Count 7.6 10^3/uL (3.5-10.8)
[2022-08-31 06:36] LABS: INR 1.05 (0.88-1.18)
[2022-08-31 06:56] LABS: Calcium 9.5 mg/dL (8.6-10.3); Creatinine, Serum 9.87 mg/dL (0.67-1.17); eGFR CKD-EPI 6.1 (>60)
[2022-08-31 06:57] LABS: Potassium 5.3 mmol/L (3.5-5.0)
[2022-08-31 07:51] LABS: ABS Basophils 0.1 10^3/ul (0-0.2); ABS Eosinophils 0.5 10^3/ul (0-0.6); ABS Lymphocytes 1.1 10^3/ul (1.0-4.8); ABS Monocytes 0.8 10^3/ul (0-0.8); ABS Neutrophils 5.2 10^3/ul (1.5-7.7); Eosinophil % 6.4 %; Lymphocyte % 14.2 %
[2022-08-31] MEDS: Pentafluoroprop/Tetrafluoro 1 SPRAY TOP.SPRAY TOPICAL PRN (09:43)
[2022-08-31] MEDS: Heparin 1,000 UNIT/ML 10 ml (10,000 UNITS) CATHLAB/DIALYSIS DIALYSIS SCH ×3 (09:43→11:35)
[2022-08-31] MEDS: cefTRIAXone 1 gm/50 mL D5W 1 GM/50 ML BAG IV SCH (15:09)
[2022-09-01] MEDS: HYDROmorphone 0.5 MG/0.5 ML SYRINGE IV SLOW PU PRN ×6 (00:53→21:13)
[2022-09-01] MEDS ORDERED: NS 0.9% 1000 ml BAG 1,000 ML IV SCH (06:00)
[2022-09-01] MEDS ORDERED: Buffered Lidocaine 1% SYRIN 1 ml INTRADERM ONE (06:00)
[2022-09-01] MEDS ORDERED: fentaNYL 100 mcg/2 ml 50 MCG/ML VIAL IV PRN (07:34)
[2022-09-01] MEDS ORDERED: Prochlorperazine 5 mg/ml 2 ml VIAL (10 mg) IV PRN (07:34)
[2022-09-01] MEDS ORDERED: Acetaminophen IV 1 GM/100ML 1,000 MG/100 ML BAG IV ONE (07:34)
[2022-09-01] MEDS ORDERED: HYDROmorphone 1 MG/1 ML SYRINGE IV PRN (07:34)
[2022-09-01] MEDS ORDERED: Naloxone 0.4 mg VIAL 0.4 mg/ml 1 ml VIAL IV PRN (07:34)
[2022-09-01 07:37] LABS: Albumin 3.5 g/dL (3.2-5.2); Albumin/Globulin Ratio 1.7 (1-3); Calcium 9.2 mg/dL (8.6-10.3); Creatinine, Serum 8.26 mg/dL (0.67-1.17); Globulin 2.1 g/dL (2-4); Potassium 4.9 mmol/L (3.5-5.0); Total Bilirubin 0.4 mg/dL (0.2-1.0); Total Protein 5.6 g/dL (6.4-8.9); eGFR CKD-EPI 7.6 (>60)
[2022-09-01] MEDS: Labetalol IV 5 MG/ML 20 ml VIAL IV PUSH PRN (08:17)
[2022-09-01] MEDS ORDERED: cefTRIAXone 1 gm/50 mL D5W 1 GM/50 ML BAG IV SCH (09:00)
[2022-09-01] MEDS ORDERED: cefTRIAXone 1 GM Q24H (ADVAN) IVPB SCH (09:00)
[2022-09-01] MEDS: Heparin 1,000 UNIT/ML 10 ml (10,000 UNITS) CATHLAB/DIALYSIS DIALYSIS SCH (11:55)
[2022-09-01] MEDS ORDERED: Ondansetron 4 mg VIAL 2 MG/ML 2 ml VIAL ONE ×2 (15:32→19:13)
[2022-09-01] MEDS ORDERED: Propofol 10 MG/ML 20 ML BTL ONE ×2 (15:32→16:52)
[2022-09-01] MEDS ORDERED: HYDROmorphone 0.5 MG/0.5 ML SYRINGE ONE ×2 (15:32→19:17)
[2022-09-01] MEDS ORDERED: Dexamethasone IV 4 MG/ML VIAL 1 ml VIAL ONE (15:32)
[2022-09-01] MEDS ORDERED: Metoclopramide 5 MG/ML VIAL (10 mg) ONE (15:32)
[2022-09-01] MEDS ORDERED: fentaNYL 250 mcg/5 ml 50 MCG/ML 5 ml VIAL (250 MCG) ONE (15:34)
[2022-09-01] MEDS ORDERED: Midazolam 5 mg/5 ml VIAL 1 mg/ml 5 ml VIAL (5 mg) ONE (16:52)
[2022-09-01] MEDS ORDERED: Lidocaine 1% VIAL 10 MG/ML VIAL 30 ML ONE (16:52)
[2022-09-01] MEDS ORDERED: fentaNYL 100 mcg/2 ml 50 MCG/ML VIAL ONE (16:52)
[2022-09-01] MEDS ORDERED: Lidocaine 2% PF 5 ML VIAL ONE (16:52)
[2022-09-01] MEDS ORDERED: ceFAZolin 1 GM in Dextrose 0 GM/0 ML BAG ONE (16:56)
[2022-09-01] MEDS ORDERED: ceFAZolin 2 GM in NS PREMIX 2 GM/100 ML BAG IVPB ONE (17:05)
[2022-09-01] MEDS ORDERED: Labetalol IV 5 MG/ML 20 ml VIAL ONE (17:19)
[2022-09-01] MEDS ORDERED: Ketamine HCL 50 mg/ml 10 ml VIAL (500 MG) ONE (17:42)
[2022-09-01 18:38] LABS: PCO2 Arterial 65 mmHg (35-45); PO2 Arterial 94 mmHg (80-100)
[2022-09-01 18:39] LABS: Hematocrit 33 % (42-52); Hemoglobin 10.5 g/dL (14.0-18.0); Mean Corpuscular HGB Conc 32 g/dL (31-36); Mean Corpuscular Hemoglobin 28 pg (27-31); Mean Corpuscular Volume 86 fL (80-94); Mean Platelet Volume 8.4 fL (7.4-10.4); Platelet Count 361 10^3/uL (150-450); Red Blood Count 3.83 10^6 /uL (4.18-5.48); Red Cell Distribution Width 21 % (10-15); White Blood Count 10.6 10^3/uL (3.5-10.8)
[2022-09-01] MEDS ORDERED: Glycopyrrolate IV 0.2 MG/ML 1 ML VIAL ONE ×2 (18:43)
[2022-09-01 18:50] LABS: Activated Partial Thrombo Time 39.5 seconds (26.0-38.0); INR 1.07 (0.88-1.18)
[2022-09-01 19:00] LABS: Albumin 3.9 g/dL (3.2-5.2); Calcium 9.4 mg/dL (8.6-10.3); Total Bilirubin 0.4 mg/dL (0.2-1.0)
[2022-09-01 19:06] LABS: Albumin/Globulin Ratio 1.6 (1-3); Creatinine, Serum 9.29 mg/dL (0.67-1.17); Globulin 2.4 g/dL (2-4); Myoglobin 87.2 ng/mL (17.4-105.7); Total Protein 6.3 g/dL (6.4-8.9); eGFR CKD-EPI 6.6 (>60)
[2022-09-01] MEDS: Ondansetron 4 mg VIAL 2 MG/ML 2 ml VIAL IV PRN (19:06)
[2022-09-01 19:07] LABS: CKMB ng/mL 3.3 ng/mL (0.6-6.3)
[2022-09-01 19:08] LABS: ABS Basophils 0.1 10^3/ul (0-0.2); ABS Eosinophils 0.5 10^3/ul (0-0.6); ABS Lymphocytes 1.6 10^3/ul (1.0-4.8); ABS Neutrophils 8.4 10^3/ul (1.5-7.7); Eosinophil % 4.7 %; Lymphocyte % 14.8 %; Nucleated Red Blood Cells % 0.1; Potassium 5.1 mmol/L (3.5-5.0)
[2022-09-01] MEDS ORDERED: Piperacillin/Tazobac ADVAN 3.375 GM in NS 0.9% 100 ml BAG 100 ML IV ONE (19:10)
[2022-09-01 19:14] LABS: Acanthocytes 1+; Anisocytosis 1+
[2022-09-01] MEDS ORDERED: Phenol 1.4% Throat Spray BTL MT PRN (19:24)
[2022-09-01 19:28] LABS: Magnesium 2.3 mg/dL (1.9-2.7)
[2022-09-01 19:34] LABS: Phosphorus 9.1 mg/dL (2.5-5.0)
[2022-09-01 19:41] LABS: PCO2 Arterial 54 mmHg (35-45); PO2 Arterial 70 mmHg (80-100)
[2022-09-01] MEDS ORDERED: Zosyn per Pharmacy NOTE FOLLOW UP SCH (20:00)
[2022-09-01] MEDS: Albuterol/Ipratropium NEB.SOL (2.5/0.5 MG) 3 ML NEB.SOLN INH SCH ×2 (20:03→23:13)
[2022-09-01 20:18] LABS: High Sensitivity Troponin 1 Hr 52 pg/mL (<20)
[2022-09-01] MEDS ORDERED: EPINEPHrine,Rac 2.25% NEB.SOL 0.5 ML INH ONE (22:17)
[2022-09-02] MEDS: HYDROmorphone 0.5 MG/0.5 ML SYRINGE IV SLOW PU PRN ×7 (00:21→21:31)
[2022-09-02] MEDS: ZOSYN 3.375 GM Q12H per EXTENDED INFUSION IV SCH ×2 (00:21→14:04)
[2022-09-02] MEDS: Benzocaine/Menthol LOZ PO PRN (01:28)
[2022-09-02] MEDS: Albuterol/Ipratropium NEB.SOL (2.5/0.5 MG) 3 ML NEB.SOLN INH SCH ×4 (02:42→19:09)
[2022-09-02] MEDS ORDERED: Albuterol 2.5mg/3 ml (0.083%) NEB.SOLN INH ONE (03:13)
[2022-09-02 04:37] LABS: Hematocrit 31 % (42-52); Hemoglobin 9.9 g/dL (14.0-18.0); Mean Corpuscular HGB Conc 32 g/dL (31-36); Mean Corpuscular Hemoglobin 27 pg (27-31); Mean Corpuscular Volume 84 fL (80-94); Mean Platelet Volume 8.5 fL (7.4-10.4); Platelet Count 327 10^3/uL (150-450); Red Blood Count 3.65 10^6 /uL (4.18-5.48); Red Cell Distribution Width 21 % (10-15); White Blood Count 19.3 10^3/uL (3.5-10.8)
[2022-09-02 04:40] LABS: High Sensitivity Troponin 1 Hr 62 pg/mL (<20)
[2022-09-02 04:46] LABS: Calcium 9.3 mg/dL (8.6-10.3); Creatinine, Serum 10.33 mg/dL (0.67-1.17); Magnesium 2.1 mg/dL (1.9-2.7); Phosphorus 8.8 mg/dL (2.5-5.0); eGFR CKD-EPI 5.8 (>60)
[2022-09-02 04:47] LABS: Potassium 5.7 mmol/L (3.5-5.0)
[2022-09-02 07:44] LABS: Nucleated Red Blood Cells % 0.1
[2022-09-02 07:45] LABS: Anisocytosis 2+
[2022-09-02 07:46] LABS: ABS Basophils 0.1 10^3/ul (0-0.2); ABS Lymphocytes 0.3 10^3/ul (1.0-4.8); ABS Monocytes 0.3 10^3/ul (0-0.8); ABS Neutrophils 18.7 10^3/ul (1.5-7.7); Eosinophil % 0.1 %; Lymphocyte % 1.4 %
[2022-09-02] MEDS ORDERED: Albuterol/Ipratropium NEB.SOL (2.5/0.5 MG) 3 ML NEB.SOLN INH SCH (08:00)
[2022-09-02] MEDS ORDERED: Magnesium Hydroxide LIQ 30 ML UDC PO PRN (09:38)
[2022-09-02] MEDS: Pentafluoroprop/Tetrafluoro 1 SPRAY TOP.SPRAY TOPICAL PRN (10:20)
[2022-09-02] MEDS: Heparin 1,000 UNIT/ML 10 ml (10,000 UNITS) CATHLAB/DIALYSIS DIALYSIS SCH ×2 (10:20→11:17)
[2022-09-02] MEDS: Ondansetron 4 mg VIAL 2 MG/ML 2 ml VIAL IV PRN (12:36)
[2022-09-02] MEDS ORDERED: Heparin *DIALYSIS* ONLY 1,000 UNITS/ML VIAL DIALYSIS ONE (13:31)
[2022-09-02] MEDS: cloNIDine 0.3 MG PATCH 0.3 MG/24 HR 7 DAY PATCH TRANSDERM SCH (21:42)
[2022-09-03] MEDS: HYDROmorphone 0.5 MG/0.5 ML SYRINGE IV SLOW PU PRN ×8 (00:30→22:31)
[2022-09-03] MEDS: ZOSYN 3.375 GM Q12H per EXTENDED INFUSION IV SCH ×2 (00:37→13:43)
[2022-09-03] MEDS: Albuterol/Ipratropium NEB.SOL (2.5/0.5 MG) 3 ML NEB.SOLN INH SCH ×4 (01:35→19:52)
[2022-09-03 06:05] LABS: Albumin 3.5 g/dL (3.2-5.2); Albumin/Globulin Ratio 1.5 (1-3); Calcium 9.1 mg/dL (8.6-10.3); Creatinine, Serum 9.24 mg/dL (0.67-1.17); Globulin 2.4 g/dL (2-4); Potassium 5.3 mmol/L (3.5-5.0); Total Bilirubin 0.4 mg/dL (0.2-1.0); Total Protein 5.9 g/dL (6.4-8.9); eGFR CKD-EPI 6.6 (>60)
[2022-09-03 06:18] LABS: Phosphorus 8.5 mg/dL (2.5-5.0)
[2022-09-03 06:59] LABS: ABS Basophils 0.1 10^3/ul (0-0.2); ABS Eosinophils 0.2 10^3/ul (0-0.6); ABS Lymphocytes 0.8 10^3/ul (1.0-4.8); ABS Monocytes 0.9 10^3/ul (0-0.8); ABS Neutrophils 7.6 10^3/ul (1.5-7.7); Eosinophil % 2.6 %; Hematocrit 28 % (42-52); Hemoglobin 9.1 g/dL (14.0-18.0); Lymphocyte % 8.3 %; Mean Corpuscular HGB Conc 33 g/dL (31-36); Mean Corpuscular Hemoglobin 28 pg (27-31); Mean Corpuscular Volume 85 fL (80-94); Mean Platelet Volume 8.3 fL (7.4-10.4); Platelet Count 303 10^3/uL (150-450); Red Blood Count 3.25 10^6 /uL (4.18-5.48); Red Cell Distribution Width 22 % (10-15); White Blood Count 9.7 10^3/uL (3.5-10.8)
[2022-09-03] MEDS ORDERED: Heparin 1,000 UNIT/ML 10 ml (10,000 UNITS) CATHLAB/DIALYSIS DIALYSIS PRN (07:24)
[2022-09-03] MEDS: Heparin 5000 UNITS/ML 1 mL VIAL SUBCUT SCH ×2 (13:43→21:02)
[2022-09-03] MEDS: Pentafluoroprop/Tetrafluoro 1 SPRAY TOP.SPRAY TOPICAL PRN (14:44)
[2022-09-03] MEDS ORDERED: guaiFENesin 100 mg/5 ml LIQ unit dose cup PO PRN (20:48)
[2022-09-04] MEDS: ZOSYN 3.375 GM Q12H per EXTENDED INFUSION IV SCH ×3 (00:48→23:30)
[2022-09-04] MEDS: HYDROmorphone 0.5 MG/0.5 ML SYRINGE IV SLOW PU PRN ×8 (01:01→23:48)
[2022-09-04] MEDS: Albuterol/Ipratropium NEB.SOL (2.5/0.5 MG) 3 ML NEB.SOLN INH SCH ×2 (01:06→07:00)
[2022-09-04] MEDS: Benzocaine/Menthol LOZ PO PRN (02:53)
[2022-09-04] MEDS ORDERED: HYDROmorphone 0.5 MG/0.5 ML SYRINGE ONE (03:02)
[2022-09-04 04:55] LABS: ABS Basophils 0.1 10^3/ul (0-0.2); ABS Eosinophils 0.2 10^3/ul (0-0.6); ABS Lymphocytes 0.5 10^3/ul (1.0-4.8); ABS Monocytes 0.8 10^3/ul (0-0.8); ABS Neutrophils 9.4 10^3/ul (1.5-7.7); Hematocrit 30 % (42-52); Hemoglobin 9.5 g/dL (14.0-18.0); Lymphocyte % 4.6 %; Mean Corpuscular HGB Conc 32 g/dL (31-36); Mean Corpuscular Hemoglobin 27 pg (27-31); Mean Corpuscular Volume 85 fL (80-94); Mean Platelet Volume 8.1 fL (7.4-10.4); Platelet Count 326 10^3/uL (150-450); Red Blood Count 3.49 10^6 /uL (4.18-5.48); Red Cell Distribution Width 21 % (10-15); White Blood Count 11.1 10^3/uL (3.5-10.8)
[2022-09-04] MEDS: Heparin 5000 UNITS/ML 1 mL VIAL SUBCUT SCH ×3 (05:09→20:54)
[2022-09-04 05:35] LABS: AST 12 U/L (13-39); Albumin 3.6 g/dL (3.2-5.2); Albumin/Globulin Ratio 1.4 (1-3); Alkaline Phosphatase 122 U/L (35-149); Anion Gap 12 mmol/L (2-11); Blood Urea Nitrogen 33 mg/dL (6-24); CO2 Carbon Dioxide 27 mmol/L (22-32); Calcium 9.4 mg/dL (8.6-10.3); Chloride 97 mmol/L (101-111); Creatinine, Serum 7.16 mg/dL (0.67-1.17); Globulin 2.5 g/dL (2-4); Glucose 83 mg/dL (70-100); Magnesium 1.8 mg/dL (1.9-2.7); Phosphorus 8.3 mg/dL (2.5-5.0); Potassium 4.8 mmol/L (3.5-5.0); Sodium 136 mmol/L (135-145); Total Protein 6.1 g/dL (6.4-8.9)
[2022-09-04 05:41] LABS: ALT < 3 U/L (7-52)
[2022-09-04] MEDS ORDERED: Neosporin TOPICAL OINT PACKET TOPICAL SCH (09:00)
[2022-09-04] MEDS ORDERED: Albuterol 2.5mg/3 ml (0.083%) NEB.SOLN INH PRN (09:06)
[2022-09-04] MEDS ORDERED: Iodixanol (CONTRAST) 320 MG/ML 100 ML SDV IV ONE (12:06)
[2022-09-04] MEDS ORDERED: Heparin *DIALYSIS* ONLY 1,000 UNITS/ML VIAL DIALYSIS PRN (15:00)
[2022-09-05] MEDS: HYDROmorphone 0.5 MG/0.5 ML SYRINGE IV SLOW PU PRN ×7 (04:43→23:48)
[2022-09-05] MEDS: ZOSYN 3.375 GM Q12H per EXTENDED INFUSION IV SCH ×2 (04:43→17:51)
[2022-09-05] MEDS: Heparin 5000 UNITS/ML 1 mL VIAL SUBCUT SCH ×3 (04:51→21:46)
[2022-09-05 05:12] LABS: ABS Basophils 0.1 10^3/ul (0-0.2); ABS Eosinophils 0.2 10^3/ul (0-0.6); ABS Lymphocytes 0.4 10^3/ul (1.0-4.8); ABS Monocytes 0.9 10^3/ul (0-0.8); ABS Neutrophils 8.3 10^3/ul (1.5-7.7); Eosinophil % 1.9 %; Hematocrit 27 % (42-52); Hemoglobin 8.7 g/dL (14.0-18.0); Lymphocyte % 4.5 %; Mean Corpuscular HGB Conc 33 g/dL (31-36); Mean Corpuscular Hemoglobin 27 pg (27-31); Mean Corpuscular Volume 83 fL (80-94); Mean Platelet Volume 7.7 fL (7.4-10.4); Platelet Count 300 10^3/uL (150-450); Red Blood Count 3.21 10^6 /uL (4.18-5.48); Red Cell Distribution Width 21 % (10-15); White Blood Count 9.9 10^3/uL (3.5-10.8)
[2022-09-05 06:22] LABS: AST 9 U/L (13-39); Albumin 3.4 g/dL (3.2-5.2); Albumin/Globulin Ratio 1.4 (1-3); Alkaline Phosphatase 101 U/L (35-149); Anion Gap 5 mmol/L (2-11); Blood Urea Nitrogen 31 mg/dL (6-24); CO2 Carbon Dioxide 31 mmol/L (22-32); Calcium 9.4 mg/dL (8.6-10.3); Chloride 97 mmol/L (101-111); Creatinine, Serum 6.78 mg/dL (0.67-1.17); Globulin 2.4 g/dL (2-4); Glucose 79 mg/dL (70-100); Magnesium 1.9 mg/dL (1.9-2.7); Potassium 4.8 mmol/L (3.5-5.0); Sodium 133 mmol/L (135-145); Total Protein 5.8 g/dL (6.4-8.9); eGFR CKD-EPI 9.6 (>60)
[2022-09-05 06:23] LABS: ALT < 3 U/L (7-52)
[2022-09-05] MEDS: Lidocaine PATCH 5% PATCH TRANSDERM SCH (18:35)
[2022-09-06] MEDS: HYDROmorphone 0.5 MG/0.5 ML SYRINGE IV SLOW PU PRN ×6 (02:44→19:19)
[2022-09-06 05:18] LABS: ABS Basophils 0.1 10^3/ul (0-0.2); ABS Eosinophils 0.2 10^3/ul (0-0.6); ABS Lymphocytes 0.7 10^3/ul (1.0-4.8); ABS Monocytes 0.7 10^3/ul (0-0.8); ABS Neutrophils 7.4 10^3/ul (1.5-7.7); Eosinophil % 1.8 %; Hematocrit 25 % (42-52); Hemoglobin 8.3 g/dL (14.0-18.0); Lymphocyte % 7.5 %; Mean Corpuscular HGB Conc 33 g/dL (31-36); Mean Corpuscular Hemoglobin 27 pg (27-31); Mean Corpuscular Volume 83 fL (80-94); Mean Platelet Volume 7.8 fL (7.4-10.4); Platelet Count 315 10^3/uL (150-450); Red Blood Count 3.05 10^6 /uL (4.18-5.48); Red Cell Distribution Width 21 % (10-15)
[2022-09-06] MEDS: ZOSYN 3.375 GM Q12H per EXTENDED INFUSION IV SCH ×2 (05:19→16:49)
[2022-09-06 05:53] LABS: Calcium 9.2 mg/dL (8.6-10.3); Creatinine, Serum 9.84 mg/dL (0.67-1.17); Magnesium 2.1 mg/dL (1.9-2.7); eGFR CKD-EPI 6.1 (>60)
[2022-09-06 05:56] LABS: Potassium 5.1 mmol/L (3.5-5.0)
[2022-09-06] MEDS: Heparin 5000 UNITS/ML 1 mL VIAL SUBCUT SCH ×3 (07:20→21:09)
[2022-09-06] MEDS ORDERED: Lidocaine PATCH 5% PATCH TRANSDERM SCH (09:00)
[2022-09-06] MEDS: Lidocaine PATCH 5% PATCH TRANSDERM SCH (10:19)
[2022-09-06 10:25] LABS: Uric Acid 5.6 mg/dL (4.4-7.6)
[2022-09-07] MEDS: HYDROmorphone 0.5 MG/0.5 ML SYRINGE IV SLOW PU PRN ×9 (00:39→22:58)
[2022-09-07] MEDS: Heparin 5000 UNITS/ML 1 mL VIAL SUBCUT SCH ×3 (05:02→20:59)
[2022-09-07 05:45] LABS: ABS Basophils 0.1 10^3/ul (0-0.2); ABS Eosinophils 0.2 10^3/ul (0-0.6); ABS Lymphocytes 0.6 10^3/ul (1.0-4.8); ABS Monocytes 0.8 10^3/ul (0-0.8); ABS Neutrophils 7.5 10^3/ul (1.5-7.7); Eosinophil % 1.9 %; Hematocrit 26 % (42-52); Hemoglobin 8.5 g/dL (14.0-18.0); Lymphocyte % 6.6 %; Mean Corpuscular HGB Conc 33 g/dL (31-36); Mean Corpuscular Hemoglobin 27 pg (27-31); Mean Corpuscular Volume 82 fL (80-94); Platelet Count 317 10^3/uL (150-450); Red Blood Count 3.14 10^6 /uL (4.18-5.48); Red Cell Distribution Width 20 % (10-15); White Blood Count 9.1 10^3/uL (3.5-10.8)
[2022-09-07 06:27] LABS: Calcium 9.5 mg/dL (8.6-10.3); Creatinine, Serum 12.44 mg/dL (0.67-1.17); Magnesium 2.4 mg/dL (1.9-2.7); Potassium 5.7 mmol/L (3.5-5.0); eGFR CKD-EPI 4.6 (>60)
[2022-09-07] MEDS: Lidocaine PATCH 5% PATCH TRANSDERM SCH (08:59)
[2022-09-07] MEDS ORDERED: Benzocaine (plain) Lozenge 15 MG PO PRN (11:00)
[2022-09-07 15:43] LABS: C Reactive Protein 96.68 mg/L (<8.01)
[2022-09-07] MEDS: Pentafluoroprop/Tetrafluoro 1 SPRAY TOP.SPRAY TOPICAL PRN (16:52)
[2022-09-08] MEDS: HYDROmorphone 0.5 MG/0.5 ML SYRINGE IV SLOW PU PRN ×7 (01:16→15:03)
[2022-09-08] MEDS: Heparin 5000 UNITS/ML 1 mL VIAL SUBCUT SCH ×3 (05:13→23:00)
[2022-09-08 05:59] LABS: ABS Basophils 0.1 10^3/ul (0-0.2); ABS Eosinophils 0.2 10^3/ul (0-0.6); ABS Lymphocytes 0.5 10^3/ul (1.0-4.8); ABS Monocytes 0.9 10^3/ul (0-0.8); ABS Neutrophils 6.3 10^3/ul (1.5-7.7); Eosinophil % 2.1 %; Hematocrit 27 % (42-52); Hemoglobin 9.2 g/dL (14.0-18.0); Lymphocyte % 6.2 %; Mean Corpuscular HGB Conc 34 g/dL (31-36); Mean Corpuscular Hemoglobin 28 pg (27-31); Mean Corpuscular Volume 83 fL (80-94); Mean Platelet Volume 8.2 fL (7.4-10.4); Platelet Count 322 10^3/uL (150-450); Red Blood Count 3.29 10^6 /uL (4.18-5.48); Red Cell Distribution Width 21 % (10-15); White Blood Count 7.9 10^3/uL (3.5-10.8)
[2022-09-08 06:24] LABS: Calcium 9.2 mg/dL (8.6-10.3); Creatinine, Serum 9.42 mg/dL (0.67-1.17); Magnesium 2.2 mg/dL (1.9-2.7); eGFR CKD-EPI 6.5 (>60)
[2022-09-08 06:37] LABS: Potassium 5.1 mmol/L (3.5-5.0)
[2022-09-08] MEDS: Heparin 1,000 UNIT/ML 10 ml (10,000 UNITS) CATHLAB/DIALYSIS DIALYSIS PRN (11:09)
[2022-09-08] MEDS: Pentafluoroprop/Tetrafluoro 1 SPRAY TOP.SPRAY TOPICAL PRN (11:09)
[2022-09-08] MEDS: Lidocaine PATCH 5% PATCH TRANSDERM SCH (11:10)
[2022-09-08 12:08] LABS: Body Fluid Appearance Bloody; Body Fluid Color Pink; Body Fluid Source Synovial Fluid
[2022-09-08 15:06] LABS: Body Fluid WBC 5 /mcL
[2022-09-08 15:11] LABS: Body Fluid Mono 38 %; Body Fluid Other Cells 10; Body Fluid Total Cells Counted 179
[2022-09-08] MEDS: HYDROmorphone 0.5 MG/0.5 ML SYRINGE IV PRN (19:17)
[2022-09-09] MEDS: HYDROmorphone 0.5 MG/0.5 ML SYRINGE IV PRN (01:23)
[2022-09-09 06:07] LABS: ABS Basophils 0.1 10^3/ul (0-0.2); ABS Eosinophils 0.1 10^3/ul (0-0.6); ABS Lymphocytes 0.8 10^3/ul (1.0-4.8); ABS Monocytes 1.1 10^3/ul (0-0.8); ABS Neutrophils 6.2 10^3/ul (1.5-7.7); Eosinophil % 1.7 %; Hematocrit 29 % (42-52); Hemoglobin 9.6 g/dL (14.0-18.0); Lymphocyte % 9.1 %; Mean Corpuscular HGB Conc 33 g/dL (31-36); Mean Corpuscular Hemoglobin 28 pg (27-31); Mean Corpuscular Volume 83 fL (80-94); Mean Platelet Volume 8.4 fL (7.4-10.4); Platelet Count 306 10^3/uL (150-450); Red Blood Count 3.48 10^6 /uL (4.18-5.48); Red Cell Distribution Width 20 % (10-15); White Blood Count 8.3 10^3/uL (3.5-10.8)
[2022-09-09] MEDS: Heparin 5000 UNITS/ML 1 mL VIAL SUBCUT SCH ×2 (06:07→17:58)
[2022-09-09 06:21] LABS: Calcium 9.6 mg/dL (8.6-10.3); Magnesium 2.1 mg/dL (1.9-2.7)
[2022-09-09 06:27] LABS: Creatinine, Serum 8.32 mg/dL (0.67-1.17); eGFR CKD-EPI 7.5 (>60)
[2022-09-09] MEDS: Lidocaine PATCH 5% PATCH TRANSDERM SCH (08:56)
[2022-09-09] MEDS: Heparin 1,000 UNIT/ML 10 ml (10,000 UNITS) CATHLAB/DIALYSIS DIALYSIS PRN (11:58)
[2022-09-09 17:13] VITALS: BP 129/99
== END 2022-09-09 18:05 | disposition home or self-care (01) | DRG 710 ==
LOC: ED 20:22 → SUATTDRO 23:46 → EDHOLD 23:46 → ICU 08-26 00:04 → MEDTELE 08-27 22:21 → MED 08-31 19:35 → ICU 09-01 19:16 → MED 09-07 00:52
PROVIDERS: ADMIT Surgery Surgical Critical Care; ATTEND Hospitalist

== ENCOUNTER 2022-11-12 14:42 | Inpatient (IN) ==
[2022-11-12 15:26] LABS: ABS Basophils 0.1 10^3/uL (0.0-0.1); ABS Eosinophils 0.2 10^3/uL (0.0-0.5); ABS Lymphocytes 0.5 10^3/uL (1.0-4.8); ABS Monocytes 0.6 10^3/uL (0.0-1.1); ABS Neutrophils 8.1 10^3/uL (1.5-7.6); Eosinophil % 2.2 %; Hematocrit 29.3 % (38-53); Hemoglobin 9.8 g/dL (13.2-16.3); Lymphocyte % 5.7 %; Mean Corpuscular Hemoglobin 26.5 pg (27-33); Mean Corpuscular Hgb Conc 33.4 g/dL (31-36); Mean Corpuscular Volume 79.4 fL (80-97); Mean Platelet Volume 8.2 fL (7.5-11.2); Platelet Count 205 10^3/uL (150-450); Red Blood Count 3.69 10^6/uL (4.06-5.63); Red Cell Distribution Width 22.9 % (12-17); White Blood Count 9.5 10^3/uL (3.6-10.2)
[2022-11-12] MEDS ORDERED: NS 0.9% 1000 ml BAG 100 ML IV PRN (15:51)
[2022-11-12] MEDS ORDERED: NS 0.9% 1000 ml BAG 200 ML IV PRN (15:51)
[2022-11-12] MEDS: Heparin 1,000 UNIT/ML 10 ml (10,000 UNITS) CATHLAB/DIALYSIS DIALYSIS SCH ×3 (16:30→18:30)
[2022-11-12 16:37] LABS: Albumin/Globulin Ratio 1.8 (1-3); Calcium 9.3 mg/dL (8.6-10.3); Creatinine, Serum 12.39 mg/dL (0.67-1.17); Globulin 2.2 g/dL (2-4); Magnesium 2.2 mg/dL (1.9-2.7); Total Bilirubin 0.4 mg/dL (0.2-1.0); Total Protein 6.2 g/dL (6.4-8.9); eGFR CKD-EPI 4.6 (>60)
[2022-11-12 16:40] LABS: Potassium 6.5 mmol/L (3.5-5.0)
[2022-11-12 17:30] LABS: High Sensitivity Troponin 1 Hr 73 pg/mL (<20)
[2022-11-12 18:08] LABS: Hepatitis B Surface Antigen Nonreactive (Nonreactive)
[2022-11-12 18:13] LABS: Hepatitis B Core IgM Nonreactive (Nonreactive)
[2022-11-12 18:25] LABS: Hepatitis B Surface Ab Not Immune (Immune); Hepatitis C Antibody Negative (Negative)
[2022-11-12] MEDS: fentaNYL 100 mcg/2 ml 50 MCG/ML VIAL IV SLOW PU PRN ×2 (19:56→23:34)
[2022-11-12] MEDS ORDERED: Morphine 2 MG/ML SYRINGE IV ONE (21:00)
[2022-11-12] MEDS ORDERED: HYDROcodone/ACETAMIN 5/325 mg TAB PO ONE (22:14)
[2022-11-13] MEDS ORDERED: Morphine 2 MG/ML SYRINGE IV ONE (01:42)
[2022-11-13] MEDS: fentaNYL 100 mcg/2 ml 50 MCG/ML VIAL IV SLOW PU PRN ×7 (03:10→23:08)
[2022-11-13 06:16] LABS: ABS Basophils 0.1 10^3/uL (0.0-0.1); ABS Eosinophils 0.3 10^3/uL (0.0-0.5); ABS Lymphocytes 0.8 10^3/uL (1.0-4.8); ABS Monocytes 0.6 10^3/uL (0.0-1.1); ABS Neutrophils 6.6 10^3/uL (1.5-7.6); Eosinophil % 3.2 %; Hematocrit 26.7 % (38-53); Lymphocyte % 9.3 %; Mean Corpuscular Hemoglobin 26.8 pg (27-33); Mean Corpuscular Hgb Conc 33.6 g/dL (31-36); Mean Corpuscular Volume 79.8 fL (80-97); Mean Platelet Volume 7.9 fL (7.5-11.2); Platelet Count 177 10^3/uL (150-450); Red Blood Count 3.34 10^6/uL (4.06-5.63); Red Cell Distribution Width 23.1 % (12-17); White Blood Count 8.2 10^3/uL (3.6-10.2)
[2022-11-13 07:04] LABS: Creatinine, Serum 9.52 mg/dL (0.67-1.17); Magnesium 1.9 mg/dL (1.9-2.7); Phosphorus 7.7 mg/dL (2.5-5.0); eGFR CKD-EPI 6.4 (>60)
[2022-11-13] MEDS: Heparin 1,000 UNIT/ML 10 ml (10,000 UNITS) CATHLAB/DIALYSIS DIALYSIS SCH ×4 (09:30→12:34)
[2022-11-13] MEDS: Lidocaine PATCH 5% PATCH TRANSDERM SCH (10:25)
[2022-11-13] MEDS ORDERED: cloNIDine 0.3 MG PATCH 0.3 MG/24 HR 7 DAY PATCH TRANSDERM SCH (12:00)
[2022-11-14] MEDS: fentaNYL 100 mcg/2 ml 50 MCG/ML VIAL IV SLOW PU PRN ×8 (01:48→23:00)
[2022-11-14 05:23] LABS: ABS Basophils 0.1 10^3/uL (0.0-0.1); ABS Eosinophils 0.3 10^3/uL (0.0-0.5); ABS Lymphocytes 0.8 10^3/uL (1.0-4.8); ABS Monocytes 0.9 10^3/uL (0.0-1.1); ABS Neutrophils 5.7 10^3/uL (1.5-7.6); ABS Nucleated RBC 0.01 10^3/ul; Eosinophil % 3.4 %; Hematocrit 31.7 % (38-53); Hemoglobin 10.5 g/dL (13.2-16.3); Lymphocyte % 10.2 %; Mean Corpuscular Hgb Conc 33.2 g/dL (31-36); Mean Corpuscular Volume 78.2 fL (80-97); Mean Platelet Volume 7.9 fL (7.5-11.2); Nucleated Red Blood Cells % 0.1 /100 WBC (0.0-0.4); Platelet Count 222 10^3/uL (150-450); Red Blood Count 4.05 10^6/uL (4.06-5.63); Red Cell Distribution Width 22.6 % (12-17); White Blood Count 7.8 10^3/uL (3.6-10.2)
[2022-11-14 06:37] LABS: Calcium 9.6 mg/dL (8.6-10.3); Creatinine, Serum 7.24 mg/dL (0.67-1.17); Magnesium 1.9 mg/dL (1.9-2.7); Phosphorus 6.4 mg/dL (2.5-5.0); Potassium 5.1 mmol/L (3.5-5.0); eGFR CKD-EPI 8.8 (>60)
[2022-11-14] MEDS: Lidocaine PATCH 5% PATCH TRANSDERM SCH (07:33)
[2022-11-14] MEDS: Heparin 1,000 UNIT/ML 10 ml (10,000 UNITS) CATHLAB/DIALYSIS DIALYSIS SCH ×4 (08:25→11:26)
[2022-11-14] MEDS ORDERED: fentaNYL 100 mcg/2 ml 50 MCG/ML VIAL IV SLOW PU PRN (21:59)
[2022-11-15] MEDS ORDERED: Labetalol IV 5 MG/ML 20 ml VIAL IV PUSH ONE ×2 (01:27→22:25)
[2022-11-15] MEDS: fentaNYL 100 mcg/2 ml 50 MCG/ML VIAL IV SLOW PU PRN ×8 (02:17→22:15)
[2022-11-15 06:52] LABS: ABS Basophils 0.1 10^3/uL (0.0-0.1); ABS Eosinophils 0.2 10^3/uL (0.0-0.5); ABS Lymphocytes 0.8 10^3/uL (1.0-4.8); ABS Monocytes 0.7 10^3/uL (0.0-1.1); ABS Neutrophils 4.4 10^3/uL (1.5-7.6); ABS Nucleated RBC 0.01 10^3/ul; Eosinophil % 3.8 %; Hematocrit 32.2 % (38-53); Hemoglobin 10.5 g/dL (13.2-16.3); Lymphocyte % 13.3 %; Mean Corpuscular Hemoglobin 25.7 pg (27-33); Mean Corpuscular Hgb Conc 32.5 g/dL (31-36); Mean Corpuscular Volume 79.2 fL (80-97); Mean Platelet Volume 8.3 fL (7.5-11.2); Nucleated Red Blood Cells % 0.1 /100 WBC (0.0-0.4); Platelet Count 241 10^3/uL (150-450); Red Blood Count 4.06 10^6/uL (4.06-5.63); Red Cell Distribution Width 22.3 % (12-17); White Blood Count 6.2 10^3/uL (3.6-10.2)
[2022-11-15 07:06] LABS: Calcium 9.8 mg/dL (8.6-10.3); Creatinine, Serum 7.02 mg/dL (0.67-1.17); Phosphorus 6.2 mg/dL (2.5-5.0); Potassium 5.2 mmol/L (3.5-5.0); eGFR CKD-EPI 9.2 (>60)
[2022-11-15] MEDS: Lidocaine PATCH 5% PATCH TRANSDERM SCH (08:33)
[2022-11-15] MEDS: Heparin 1,000 UNIT/ML 10 ml (10,000 UNITS) CATHLAB/DIALYSIS DIALYSIS SCH ×4 (09:53→12:53)
[2022-11-16] MEDS ORDERED: Labetalol IV 5 MG/ML 20 ml VIAL IV PUSH ONE ×2 (00:29→06:09)
[2022-11-16] MEDS: fentaNYL 100 mcg/2 ml 50 MCG/ML VIAL IV SLOW PU PRN ×8 (00:55→23:00)
[2022-11-16 06:15] LABS: ABS Basophils 0.1 10^3/uL (0.0-0.1); ABS Eosinophils 0.4 10^3/uL (0.0-0.5); ABS Lymphocytes 1.1 10^3/uL (1.0-4.8); ABS Monocytes 0.9 10^3/uL (0.0-1.1); ABS Neutrophils 4.5 10^3/uL (1.5-7.6); ABS Nucleated RBC 0.02 10^3/ul; Eosinophil % 5.4 %; Hematocrit 31.2 % (38-53); Hemoglobin 10.2 g/dL (13.2-16.3); Lymphocyte % 15.6 %; Mean Corpuscular Hemoglobin 26.3 pg (27-33); Mean Corpuscular Hgb Conc 32.8 g/dL (31-36); Mean Corpuscular Volume 80.2 fL (80-97); Mean Platelet Volume 8.1 fL (7.5-11.2); Nucleated Red Blood Cells % 0.3 /100 WBC (0.0-0.4); Platelet Count 244 10^3/uL (150-450); Red Blood Count 3.89 10^6/uL (4.06-5.63); White Blood Count 6.9 10^3/uL (3.6-10.2)
[2022-11-16 06:38] LABS: Calcium 9.7 mg/dL (8.6-10.3); Potassium 5.3 mmol/L (3.5-5.0)
[2022-11-16 06:43] LABS: Creatinine, Serum 7.39 mg/dL (0.67-1.17); Phosphorus 6.3 mg/dL (2.5-5.0); eGFR CKD-EPI 8.6 (>60)
[2022-11-16] MEDS: Lidocaine PATCH 5% PATCH TRANSDERM SCH (07:47)
[2022-11-16] MEDS: Heparin 1,000 UNIT/ML 10 ml (10,000 UNITS) CATHLAB/DIALYSIS DIALYSIS SCH ×3 (08:43→11:00)
[2022-11-16] MEDS ORDERED: fentaNYL 100 mcg/2 ml 50 MCG/ML VIAL IV SLOW PU PRN (09:06)
[2022-11-16 15:59] LABS: Ferritin 308.7 ng/mL (24-336)
[2022-11-17] MEDS: fentaNYL 100 mcg/2 ml 50 MCG/ML VIAL IV SLOW PU PRN ×5 (01:24→20:13)
[2022-11-17] MEDS: Lidocaine PATCH 5% PATCH TRANSDERM SCH (07:53)
[2022-11-17 08:48] LABS: Calcium 10.1 mg/dL (8.6-10.3); Creatinine, Serum 7.3 mg/dL (0.67-1.17); Potassium 5.2 mmol/L (3.5-5.0); eGFR CKD-EPI 8.7 (>60)
[2022-11-17] MEDS: Heparin 1,000 UNIT/ML 10 ml (10,000 UNITS) CATHLAB/DIALYSIS DIALYSIS SCH ×3 (09:16→12:00)
[2022-11-17] MEDS ORDERED: fentaNYL 100 mcg/2 ml 50 MCG/ML VIAL IV SLOW PU PRN (09:18)
[2022-11-18 06:11] LABS: Creatinine, Serum 7.21 mg/dL (0.67-1.17); Magnesium 1.9 mg/dL (1.9-2.7); eGFR CKD-EPI 8.8 (>60)
[2022-11-18] MEDS: Lidocaine PATCH 5% PATCH TRANSDERM SCH (07:56)
[2022-11-18] MEDS: Heparin 1,000 UNIT/ML 10 ml (10,000 UNITS) CATHLAB/DIALYSIS DIALYSIS SCH ×4 (10:26→13:32)
[2022-11-18] MEDS ORDERED: Pentafluoroprop/Tetrafluoro 1 SPRAY TOP.SPRAY TOPICAL PRN (10:38)
[2022-11-18] MEDS: fentaNYL 100 mcg/2 ml 50 MCG/ML VIAL IV SLOW PU PRN (11:19)
[2022-11-19] MEDS: fentaNYL 100 mcg/2 ml 50 MCG/ML VIAL IV SLOW PU PRN (07:11)
[2022-11-19] MEDS: Lidocaine PATCH 5% PATCH TRANSDERM SCH (07:12)
[2022-11-19] MEDS: Heparin 1,000 UNIT/ML 10 ml (10,000 UNITS) CATHLAB/DIALYSIS DIALYSIS SCH ×4 (08:45→11:37)
[2022-11-19] MEDS: Albumin Human 25% 25 GM/100 ML BTL IV PRN ×2 (09:48→11:43)
[2022-11-19 14:10] VITALS: BP 108/61
== END 2022-11-19 15:30 | disposition home or self-care (01) | DRG 199 ==
LOC: ED 14:42 → SUATTDRO 15:14 → EDHOLD 15:14 → ICU 16:07 → MEDTELE 11-14 14:07
PROVIDERS: ADMIT Internal Medicine Critical Care Medicine; ATTEND Internal Medicine